=== PATIENT | male | born 1990 | race African-American/Black ===

== ENCOUNTER 2019-09-12 12:20 | Emergency (ER) | payer OTHER ==
[~2019-09-12] VITALS: Ht 162.6 cm; Wt 65.8 kg
[2019-09-12] MEDS ORDERED: TESSALON PERLE100 MG PO ×2 (13:36→13:43)
[2019-09-12 14:02] VITALS: BP 136/99
== END 2019-09-12 14:04 | disposition home or self-care (01) ==
LOC: ER 12:20
DX: J06.9 Acute upper respiratory infection, unspecified (principal); F17.210 Nicotine dependence, cigarettes, uncomplicated; Z88.0 Allergy status to penicillin

== ENCOUNTER 2020-04-22 13:55 | Emergency (ER) | payer OTHER ==
[~2020-04-22] VITALS: Ht 165.1 cm; Wt 63.5 kg
[~2020-04-22 13:55] MED LIST: TESSALON PERLE100 MG PO
[2020-04-22] MEDS ORDERED: VIBRAMYCIN 100100 M2 PO (14:15)
[2020-04-22] MEDS ORDERED: FLAGYL500 M1 PO (14:15)
[2020-04-22 14:57] VITALS: BP 119/77
[2020-04-22 15:03] LABS: URINE BILIRUBIN NEGATIVE (Negative); URINE BLOOD TRACE (Negative); URINE CLARITY CLEAR; URINE COLOR YELLOW; URINE GLUCOSE-RANDOM* NEGATIVE (Negative); URINE KETONES NEGATIVE (Negative); URINE LEUKOCYTES-REFLEX NEGATIVE (Negative); URINE NITRITE-REFLEX NEGATIVE (Negative); URINE PROTEIN (DIPSTICK) NEGATIVE (Negative); URINE SPECIFIC GRAVITY 1.025 (1.005-1.035); URINE UROBILINOGEN 0.2 E.U./dl (0.2-1.0)
== END 2020-04-22 14:57 | disposition home or self-care (01) ==
LOC: ER 13:55
PROVIDERS: Nurse Practitioner Family
DX: A64 Unspecified sexually transmitted disease (principal); F17.210 Nicotine dependence, cigarettes, uncomplicated; Z79.899 Other long term (current) drug therapy; Z88.0 Allergy status to penicillin

== ENCOUNTER 2020-12-20 11:15 | Emergency (ER) | payer OTHER ==
[~2020-12-20 11:15] MED LIST changes: +FLAGYL500 M1 PO; +VIBRAMYCIN 100100 M2 PO
[2020-12-20] MEDS ORDERED: ZANAFLEX4 MG PO (12:07)
[2020-12-20] MEDS ORDERED: MOBIC7.5 MG PO (12:07)
[2020-12-20 12:29] VITALS: BP 123/83
== END 2020-12-20 12:28 | disposition home or self-care (01) ==
LOC: ER 11:15
DX: M54.5 Low back pain (principal); M54.6 Pain in thoracic spine; M62.830 Muscle spasm of back; F17.210 Nicotine dependence, cigarettes, uncomplicated; Z88.0 Allergy status to penicillin